=== PATIENT | male | born 2000 | race Caucasian/White ===

== ENCOUNTER 2021-06-08 22:34 | Emergency (ER) | payer OTHER ==
[~2021-06-08] VITALS: Ht 185.4 cm; Wt 77.1 kg
[2021-06-09 00:08] VITALS: BP 131/83
[2021-06-09] MEDS ORDERED: IBUPROFEN 400 MG TABLET ONE (00:22)
--- NOTE | 2021-06-09 00:25 | NUR ---
XRAY AT BEDSIDE
[2021-06-09] MEDS ORDERED: IBUPROFEN 400 MG TABLET PO ONE (00:30)
[2021-06-09] MEDS ORDERED: HYDR-3972 PO (01:28)
[2021-06-09] MEDS ORDERED: HYDROCODONE/APAP 5/325MG TABLET PO ONE (01:30)
--- NOTE | 2021-06-09 01:39 | NUR ---
EMT AT BEDSIDE FOR SPLINT.
[2021-06-09] MEDS ORDERED: HYDROCODONE/APAP 5/325MG TABLET ONE (01:44)
--- NOTE | 2021-06-09 02:00 | NUR ---
Patient discharged to home in stable condition. Written and verbal after care instructions given. Patient verbalizes understanding of instruction.
== END 2021-06-09 02:02 | disposition home or self-care (01) ==
LOC: ER 22:43
DX: S62.336A Displaced fracture of neck of fifth metacarpal bone, right hand, initial encounter for closed fracture (principal); Z79.891 Long term (current) use of opiate analgesic; W50.0XXA Accidental hit or strike by another person, initial encounter; Y93.67 Activity, basketball; Y92.89 Other specified places as the place of occurrence of the external cause; Y99.8 Other external cause status
CPT/HCPCS: 73130-TC